=== PATIENT | female | born 1990 | race American Indian/Alaskan Native ===

== ENCOUNTER 2017-03-23 15:46 | Emergency (ER) | payer MEDICAID ==
[2017-03-23 16:20] VITALS: BP 98/44
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
== END 2017-03-23 21:45 | disposition left against medical advice (07) ==
LOC: ED 15:46
DX: M79.601 Pain in right arm (principal); Z53.21 Procedure and treatment not carried out due to patient leaving prior to being seen by health care provider

== ENCOUNTER 2017-05-04 17:47 | Emergency (ER) | payer MEDICAID | END 2017-05-04 18:50 | disposition left against medical advice (07) | LOC: ED 17:47 | DX: R10.9 Unspecified abdominal pain (principal); Z53.21 Procedure and treatment not carried out due to patient leaving prior to being seen by health care provider ==

== ENCOUNTER 2017-11-09 12:58 | Emergency (ER) | payer MEDICAID ==
[2017-11-09 13:33] VITALS: BP 100/57
[2017-11-09 14:42] LABS: HCG Qualitative,Urine Negative (Negative)
[2017-11-09 14:46] LABS: Bilirubin,Urine NEG (Negative); Blood,Urine NEG (Negative); Color,Urine Yellow (Yellow); Mucus,Urine 3+ /HPF; Protein,Urine <15 mg/dL mg/dL (Negative); WBC,Urine < 1.0 /HPF (0.0-6.0)
--- NOTE | 2017-11-09 15:01 | Emergency Department Report ---
ED General Adult HPI - General Chief complaint: Headache Stated complaint: HEADACHE Time Seen by Provider: 11/09/17 14:28 Source: patient Mode of arrival: Ambulatory Limitations: No Limitations - History of Present Illness Initial comments: Patient is a 27-year-old female who is presenting with headache. Patient states she has had insomnia and anxiety type symptoms for the past 4 days and has not slept. Patient feels very anxious and she says she has a headache that feels like a band going around her head. Patient states her mother is just left town and she is fairly anxious and sleep since. Patient denies any neck stiffness or fevers chills nausea vomiting light sensitivity at this time. - Related Data Home Medications Medication Instructions Recorded Confirmed Last Taken Ferrous Gluconate 240 mg PO DAILY 09/25/13 09/25/13 09/24/13 Valacyclovir HCl [Valacyclovir] 500 mg PO DAILY 09/25/13 09/25/13 09/24/13 Previous Rx's Medication Instructions Recorded Last Taken Type Docusate Sodium [Colace] 100 mg PO BID PRN #60 capsule 09/26/13 Unknown Rx oxyCODONE /ACETAMINOPHEN [Percocet 2 tab PO Q6HR PRN #30 tablet 09/26/13 Unknown Rx 5/325 mg] Ciprofloxacin HCl [Ciprofloxacin 500 mg PO Q12HR #14 tab 04/03/15 Unknown Rx TAB] Ferrous Gluconate [Fergon 325 MG 325 mg PO QDAY #30 tablet 04/03/15 Unknown Rx tab] HYDROcodone/APAP 5-325 [[place] 1 each PO Q6HR PRN #15 tablet 04/03/15 Unknown Rx 5/325] Ibuprofen [Motrin 600 MG tab] 600 mg PO Q8H PRN #30 tablet 04/03/15 Unknown Rx valACYclovir [Valtrex] 500 mg PO BID #60 tab 07/16/15 Unknown Rx ALPRAZolam [Xanax TAB] 0.25 mg PO BID PRN #7 tab 11/09/17 Unknown Rx Ketorolac [Toradol] 10 mg PO Q6H PRN #12 tablet 11/09/17 Unknown Rx Allergies Allergy/AdvReac Type Severity Reaction Status Date / Time iodine AdvReac Unknown Itching Verified 10/12/15 10:11 ED Review of Systems ROS: Stated complaint: HEADACHE Other details as noted in HPI Comment: All other systems reviewed and negative ED Past Medical Hx - Past Medical History Hx Hypertension: No Hx Heart Attack/AMI: No Hx Congestive Heart Failure: No Hx Diabetes: No Hx GERD: No Hx Liver Disease: No Hx Renal Disease: No Hx Sickle Cell Disease: No Hx Seizures: No Hx Asthma: No Hx COPD: No Hx HIV: No Additional medical history: HERPES - Surgical History Hx Pacemaker: No Hx Internal Defibrillator: No Additional Surgical History: X 4. TUBAL LIGATION - Social History Smoking Status: Never Smoker Substance Use Type: None - Medications Home Medications: Home Medications Medication Instructions Recorded Confirmed Last Taken Type Ferrous Gluconate 240 mg PO DAILY 09/25/13 09/25/13 09/24/13 History Valacyclovir HCl [Valacyclovir] 500 mg PO DAILY 09/25/13 09/25/13 09/24/13 History Docusate Sodium [Colace] 100 mg PO BID PRN #60 capsule 09/26/13 Unknown Rx oxyCODONE /ACETAMINOPHEN [Percocet 2 tab PO Q6HR PRN #30 tablet 09/26/13 Unknown Rx 5/325 mg] Ciprofloxacin HCl [Ciprofloxacin 500 mg PO Q12HR #14 tab 04/03/15 Unknown Rx TAB] Ferrous Gluconate [Fergon 325 MG 325 mg PO QDAY #30 tablet 04/03/15 Unknown Rx tab] HYDROcodone/APAP 5-325 [[place] 1 each PO Q6HR PRN #15 tablet 04/03/15 Unknown Rx 5/325] Ibuprofen [Motrin 600 MG tab] 600 mg PO Q8H PRN #30 tablet 04/03/15 Unknown Rx valACYclovir [Valtrex] 500 mg PO BID #60 tab 07/16/15 Unknown Rx ALPRAZolam [Xanax TAB] 0.25 mg PO BID PRN #7 tab 11/09/17 Unknown Rx Ketorolac [Toradol] 10 mg PO Q6H PRN #12 tablet 11/09/17 Unknown Rx ED Physical Exam - General Limitations: No Limitations General appearance: alert, in no apparent distress - Head Head exam: Present: atraumatic, normocephalic - Eye Eye exam: Present: normal appearance - ENT ENT exam: Present: mucous membranes moist - Neck Neck exam: Present: normal inspection - Respiratory Respiratory exam: Present: normal lung sounds bilaterally. Absent: respiratory distress, wheezes, rales, rhonchi, stridor - Cardiovascular Cardiovascular Exam: Present: regular rate, normal rhythm. Absent: systolic murmur, diastolic murmur, rubs, gallop - GI/Abdominal GI/Abdominal exam: Present: soft, normal bowel sounds. Absent: distended, tenderness, guarding - Extremities Exam Extremities exam: Present: normal inspection - Back Exam Back exam: Present: normal inspection - Neurological Exam Neurological exam: Present: alert, oriented X3 - Psychiatric Psychiatric exam: Present: normal affect, normal mood - Skin Skin exam: Present: warm, dry, intact, normal color. Absent: rash ED Course Vital Signs 11/09/17 13:31 Temperature 98.8 F Pulse Rate 64 Respiratory 18 Rate Blood Pressure 100/57 O2 Sat by Pulse 100 Oximetry ED Medical Decision Making - Medical Decision Making Patient's headache most likely coming from her insomnia. Patient will be sent home with pain meds as well as a few Xanax to help with anxiety and sleep Critical care attestation.: If time is entered above; I have spent that time in minutes in the direct care of this critically ill patient, excluding procedure time. ED Disposition Clinical Impression: Anxiety reaction Headache Qualifiers: Headache type: tension-type Headache chronicity pattern: acute headache Intractability: not intractable Qualified Code(s): G44.209 - Tension-type headache, unspecified, not intractable Disposition: DC-01 TO HOME OR SELFCARE Is pt being admited?: No Does the pt Need Aspirin: No Condition: Stable Instructions: Insomnia (ED), Tension Headache (ED) Prescriptions: ALPRAZolam [Xanax TAB] 0.25 mg PO BID PRN #7 tab PRN Reason: Anxiety Ketorolac [Toradol] 10 mg PO Q6H PRN #12 tablet PRN Reason: Pain Referrals: PRIMARY CARE,MD [Primary Care Provider] - 3-5 Days
== END 2017-11-09 15:02 | disposition home or self-care (01) ==
LOC: ED 12:58
DX: F41.9 Anxiety disorder, unspecified (principal); G44.209 Tension-type headache, unspecified, not intractable; G47.00 Insomnia, unspecified; Z98.51 Tubal ligation status
CPT/HCPCS: 81001; 81025; 99283